=== PATIENT | female | born 1970 | race Two or more races ===

== ENCOUNTER 2021-08-20 15:12 | Inpatient (IN) | payer BC ==
[~2021-08-20] VITALS: Ht 157.5 cm; Wt 68.0 kg
[2021-08-20] VITALS (21 sets, daily range): BP systolic 116–138; BP diastolic 62–84
--- NOTE | 2021-08-20 15:20 | NUR ---
MOVE SHEET SUBMITTED AND CALLED FOR ICU BED.
--- NOTE | 2021-08-20 15:25 | NUR ---
STARTED IV LINE, BLOOD SPECIMEN COLLECTED AND SENT TO THE LAB, LINE IS SALINE LOCKED
[2021-08-20] MEDS ORDERED: PROPOFOL 100 ML ONE (15:28)
--- NOTE | 2021-08-20 15:35 | NUR ---
The patient is [id number], from Dr. Azam fong s/p abd hernia removal and developed tension pneumothorax, Chest tube placed by , 3L NS infused,intubated. Noted chest tube on the left side, RUQ NELIA drain. The drain has 45 ml of sanguineous output. The patient is attached to the monitor. Will continue to monitor the patient.
--- NOTE | 2021-08-20 15:36 | NUR ---
GOT BED 254
--- NOTE | 2021-08-20 15:37 | NUR ---
x-ray tech at the bedside
[2021-08-20 15:38] LABS: BASOPHILS # (AUTO) 0.2 K/uL (0.0-0.2); BASOPHILS % (AUTO) 1.5 % (0.0-2.0); EOSINOPHILS % (AUTO) 0.1 % (0.0-6.0); HEMATOCRIT 41 % (33-45); HEMOGLOBIN 13.1 g/dL (11.5-14.8); LYMPHOCYTES # (AUTO) 0.9 K/uL (0.8-4.8); LYMPHOCYTES % (AUTO) 6.7 % (20.0-44.0); MEAN CORPUSCULAR HGB CONC 32 g/dl (31.0-36.0); MEAN CORPUSCULAR VOLUME 93 fL (82-100); MONOCYTES # (AUTO) 0.3 K/uL (0.1-1.30); MONOCYTES % (AUTO) 2.1 % (2.0-12.0); NEUTROPHILS # (AUTO) 12.6 K/uL (1.8-8.9); NEUTROPHILS % (AUTO) 89.6 % (43.0-81.0); PLATELET COUNT (AUTO) 246 K/uL (150-450)
--- NOTE | 2021-08-20 15:41 | NUR ---
URINE COLLECTED AND SENT TO THE LAB
[2021-08-20] MEDS: PROPOFOL 100 ML IV PRN ×3 (15:44→21:20)
--- NOTE | 2021-08-20 15:50 | NUR ---
REPORT GIVEN TO NURSE NORRIS FROM ICU
--- NOTE | 2021-08-20 15:51 | NUR ---
STARTED PROPOFOL AT 5MCG/KG/MIN. WILL CONTINUE TO MONITOR THE PATIENT.
[2021-08-20] MEDS ORDERED: ACET-868 PO (15:54)
[2021-08-20] MEDS ORDERED: MULT-594 PO (15:54)
--- NOTE | 2021-08-20 15:58 | NUR ---
INCREASED PROPOFOL TO 10MCG/KG/MIN. WILL CONTINUE TO MONITOR THE PATIENT.
--- NOTE | 2021-08-20 15:58 | NUR ---
COVID SWAB DONE AND SENT TO THE LAB
[2021-08-20] MEDS ORDERED: MAGNESIUM HYDROXIDE 30 ML UDC PO PRN (16:00)
[2021-08-20] MEDS ORDERED: MORPHINE SULFATE INJ 2 MG/ML DISP.SYRIN IV PRN (16:00)
[2021-08-20] MEDS ORDERED: Z GUARD REMEDY 2 OZ OINT TP PRN (16:00)
[2021-08-20] MEDS ORDERED: MAG HYDROX/AL HYDROX/SIMETH 30 ML UDC PO PRN (16:00)
[2021-08-20] MEDS ORDERED: ONDANSETRON HCL/PF 4 MG/2 ML VIAL IVP PRN (16:00)
[2021-08-20] MEDS ORDERED: ACETAMINOPHEN 650 MG/SUPP.RECT RC PRN (16:00)
[2021-08-20 16:02] LABS: CALCIUM, SERUM 6.7 mg/dL (8.5-10.1); CARBON DIOXIDE 26 mmol/L (21-32); CHLORIDE 109 mmol/L (98-107); CREATININE 0.8 mg/dL (0.6-1.3); GLUCOSE 154 mg/dL (74-106); POTASSIUM 4.6 mmol/L (3.5-5.1); SODIUM SERUM 141 mmol/L (136-145); UREA NITROGEN, BLOOD 8 mg/dL (7-18)
[2021-08-20 16:08] LABS: ALANINE AMINOTRANSFERASE 976 U/L (12-78); ALBUMIN 3.2 g/dL (3.4-5.0); ALKALINE PHOSPHATASE 106 U/L (46-116); ASPARTATE AMINOTRANSFERASE 994 U/L (15-37); BILIRUBIN,DIRECT 0.1 mg/dL (0.0-0.2); BILIRUBIN,TOTAL 0.2 mg/dL (0.2-1.0); TOTAL PROTEIN, SERUM 6.2 g/dL (6.4-8.2)
--- NOTE | 2021-08-20 16:10 | NUR ---
ETT ADJUSTED PER MD ORDER PULLED BACK 3 CM AND SECURED AT 19 CM LIP LINE Addendum: 08/20/21 at 1838 by RADHA PARDO RT Amended: Links added.
--- NOTE | 2021-08-20 16:15 | NUR ---
INCREASED PROPOFOL TO 15MCG/KG/MIN. WILL CONTINUE TO MONITOR THE PATIENT.
[2021-08-20] MEDS ORDERED: IV NS 0.9% 250 ML IV ONE (16:16)
[2021-08-20] MEDS ORDERED: CT SWABBABLE VALVE TRANS SET 1 EA INFUS.SET MC ONE (16:16)
[2021-08-20] MEDS ORDERED: IOHEXOL-350 100 ML VIAL IV ONE (16:16)
[2021-08-20] MEDS ORDERED: NOREPINEPHRINE 8 MG in IV NS 0.9% 242 ML IV PRN (16:30)
[2021-08-20 16:34] LABS: ABG BASE EXCESS -8.3 mmol/L; ABG PCO2 41.5 mmHg (35.0-45.0); ABG PH 7.263 (7.350-7.450); ABG PO2 246.2 mmHg (75.0-100.0); AaDO2 425.3 mmHg; COHb 0.1 % (0.5-1.5); MetHb 0.5 % (0.0-1.5); O2Hb 98.4 % (94.0-97.0); PEEP,BG 0 cm H2O; SITE, ABG Right Radial; VT, ABG 450 mL
--- NOTE | 2021-08-20 16:38 | NUR ---
INCREASED PROPOFOL TO 20MCG/KG/MIN. WILL CONTINUE TO MONITOR THE PATIENT. INCREASED PROPOFOL TO 10MCG/KG/MIN. WILL CONTINUE TO MONITOR THE PATIENT.
--- NOTE | 2021-08-20 17:10 | NUR ---
RUQ NELIA drain 50 mL sanguineous. Urine output 800 mL clear, yellow color urine.
--- NOTE | 2021-08-20 17:15 | NUR ---
HARBOR MASTER NOTES PATIENT ADMITTED FROM ER , EET/VENT SETTING 7.0/19 , FIO2-60, PEEP-0, AC-14. PATIENT SEDATED WITH DIPRIVAN 30MCG/KG/HR, ALSO STARTED NS @75ML/HR ON RIGHT WRIST INTACT. PATIENT HAS ABDOMINAL HERNIAL REPAIR AT TODAY Dr HARDWICK'S OFFICE, BECAUSE PNEUMOTHORAX CHEST TUBE INSERTED DR'S OFFICE, SEALED, AND CONNECTED TO THE REGULAR SUCTIONING. RESTRAIN BILATERAL WRIST INTACT. SALDANA DRAINING LIGHT YELLOW OUTPUT, NELIA DRAINING WELL, INTACT, ON RIGHT UPPER ABDOMEN. PATIENT HAS ABDOMINAL OPENINGS, AND HAS BAND AIDS INTACT. WILL MONITORING.
--- NOTE | 2021-08-20 17:15 | NUR ---
PROPOFOL TITRATED TO EFFECT. NO ADVERSE SIDE EFFECTS NOTED.
--- NOTE | 2021-08-20 17:16 | NUR ---
THE PATIENT IS TAKEN TO CT, THEN TRANSFERED TO ROOM 254 IN STABLE CONDITION AND PER ACLS POLICY.
[2021-08-20] MEDS: IV NS 0.9% 1,000 ML IV PRN (17:30)
[2021-08-20] MEDS: PANTOPRAZOLE 40 MG VIAL IV SCH (17:32)
--- NOTE | 2021-08-20 18:20 | NUR ---
RT NOTES, PT. REC. IN ER POST-OP @ 1515 ORALLY INTUBATED AND CHEST TUBE ON LEFT SIDE. PLACED ON MECHANICAL VENTILATOR ,WITH NOTED SETTINGS, (ETT #7.0 # 22 CM ) AC, 14, 450 100 % ALARMS ARE SET AND FUNCTIONAL CONTINUE TO MONITOR. + @ 1700 VENT CHANGES DONE POST ABG @1712 PT, IN IC AND VENT CHECK DONE AND PT. STABLE REPORT WILL PASS TO PM SHIFT. Addendum: 08/20/21 at 1824 by RADHA PARDO RT Amended: Links added.
--- NOTE | 2021-08-20 18:45 | NUR ---
RN NOTES PATIENT TOLERATED SETTING WELL INCREASED DIPRIVAN 35MCG/HG/HR, ON RIGHT AC INTACT. APPLIED VJ GO. NELIA-40ML. SALDANA DRAINING VIA GRAVITY LIGHT YELLOW OUTPUT INTACT. LEFT CHEST TUBE INTACT NO OUTPUT. ENDORSED ONCOMING NURSE FOLLOW PLAN OF CARE.
--- NOTE | 2021-08-20 20:00 | NUR ---
RT NOTE PT INTUBATED WITH 7.0 ET TUBE @ 19 CM ON RIGHT MID LIP LINE. ET TUBE SECURED VIA ANCHOR FAST. VENT PLUGGED TO RED OUTLET. ALARMS ON AND AUDIBLE. MINIMAL SECRETIONS NOTED. CHEST TUBE IN PLACE. NO RESPIRATORY DISTRESS NOTED. WILL CONTINUE TO MONITOR CLOSELY. Addendum: 08/20/21 at 2000 by BHUPINDER ZUNIGA RT Amended: Links added.
[2021-08-20] MEDS: PIPERACILLIN /TAZOBACTAM 3.375 G in IV D5W 50 ML IV SCH (22:19)
[2021-08-20] MEDS: ENOXAPARIN SODIUM 40 MG/0.4 ML DISP.SYRIN SQ SCH (22:19)
[2021-08-21] VITALS (77 sets, daily range): BP systolic 92–143; BP diastolic 45–101
[2021-08-21] MEDS: PROPOFOL 100 ML IV PRN ×2 (01:28→05:03)
[2021-08-21 04:38] LABS: BASOPHILS # (AUTO) 0.1 K/uL (0.0-0.2); BASOPHILS % (AUTO) 0.5 % (0.0-2.0); HEMATOCRIT 39 % (33-45); HEMOGLOBIN 12.9 g/dL (11.5-14.8); LYMPHOCYTES # (AUTO) 1.6 K/uL (0.8-4.8); LYMPHOCYTES % (AUTO) 11.7 % (20.0-44.0); MEAN CORPUSCULAR HGB CONC 33 g/dl (31.0-36.0); MEAN CORPUSCULAR VOLUME 92 fL (82-100); MONOCYTES # (AUTO) 0.8 K/uL (0.1-1.30); MONOCYTES % (AUTO) 5.7 % (2.0-12.0); NEUTROPHILS # (AUTO) 11.3 K/uL (1.8-8.9); NEUTROPHILS % (AUTO) 82.1 % (43.0-81.0); PLATELET COUNT (AUTO) 259 K/uL (150-450); RED BLOOD CELL COUNT(AUTO) 4.23 MIL/uL (4.0-5.2); WHITE BLOOD COUNT (AUTO) 13.8 K/uL (4.3-11.0)
--- NOTE | 2021-08-21 04:49 | NUR ---
AGRONOMY INSTRUCTOR. AM CARE GIVEN. REMAINING SAME VENT SETTING TOLERATED WELL. SAT 99%. NO ACUTE DISTRESS NOTED. TOW FEEDER SHOWING NSR. IV RT AND LT HAND. IVF NS 75 ML/H, PROPOFOL 50NCG/KG/MIN, FC PATENT. NELIA TUBE INTACT. LT SIDE CHEST TUBE LOW INTERMITTENT SUCTION. AFEBRILE. TURN AND REPOSITION Q2H. WILL CONTINUE TO MONITOR VITALS
[2021-08-21] MEDS: PIPERACILLIN /TAZOBACTAM 3.375 G in IV D5W 50 ML IV SCH ×4 (04:56→21:02)
[2021-08-21 04:58] LABS: ALBUMIN 3.1 g/dL (3.4-5.0); BILIRUBIN,DIRECT 0.1 mg/dL (0.0-0.2); BILIRUBIN,TOTAL 0.4 mg/dL (0.2-1.0); CALCIUM, SERUM 7.4 mg/dL (8.5-10.1); CREATININE 0.8 mg/dL (0.6-1.3); MAGNESIUM 1.8 mg/dL (1.8-2.4); PHOSPHORUS 3.3 mg/dL (2.5-4.9); POTASSIUM 3.6 mmol/L (3.5-5.1); TOTAL PROTEIN, SERUM 6.3 g/dL (6.4-8.2)
[2021-08-21] MEDS: IV NS 0.9% 1,000 ML IV PRN ×2 (05:02→21:00)
[2021-08-21 05:10] LABS: THYROID STIMULATING HORMONE 0.517 uIU/mL (0.358-3.74)
--- NOTE | 2021-08-21 08:00 | NUR ---
rn notes received patient eet setting tolerating well fio2-30%, peep-0. patient sedated but awake mild agitated, titrated sedation per protocol. gaspar draining light woody color output, no drainage from chest tube. rechecked bilateral restrain circulation intact. assist turn and reposition, suction, mouth care done. will follow up.
--- NOTE | 2021-08-21 08:39 | NUR ---
RN NOTES get order VIA Dr Johnathon Barrera drip for weaning from vent, ABG within 15 mins. RT aware of, put patient on SIMV . order taken and carried out.
[2021-08-21 08:52] LABS: ABG BASE EXCESS -0.4 mmol/L; ABG OXYGEN SATURATION 97.5 % (92.0-98.5); ABG PCO2 34.1 mmHg (35.0-45.0); ABG PH 7.448 (7.350-7.450); ABG PO2 97.3 mmHg (75.0-100.0); AaDO2 76.5 mmHg; COHb 0.3 % (0.5-1.5); MetHb 0.4 % (0.0-1.5); O2Hb 96.8 % (94.0-97.0); PEEP,BG 0 cm H2O; SITE, ABG Right Radial; VT, ABG 500 mL
[2021-08-21] MEDS: PANTOPRAZOLE 40 MG VIAL IV SCH (09:04)
[2021-08-21 09:29] LABS: ABG BASE EXCESS -3.5 mmol/L; ABG OXYGEN SATURATION 97.1 % (92.0-98.5); ABG PCO2 30.6 mmHg (35.0-45.0); ABG PH 7.428 (7.350-7.450); ABG PO2 93.9 mmHg (75.0-100.0); COHb 0.2 % (0.5-1.5); MetHb 0.4 % (0.0-1.5); O2Hb 96.5 % (94.0-97.0); PEEP,BG 5 cm H2O; SITE, ABG Right Radial; VT, ABG 500 mL
--- NOTE | 2021-08-21 09:40 | NUR ---
rn notes patient get extubated at this time, on NC -3L, patient awake no acute respiratory distress, vs taken bp 120/73, p-77. was complaining of pain abdomen 6/10per pain scale. Get new order from Dermendjian narco 5/325 q 4hr prn. order taken and carried out.
--- NOTE | 2021-08-21 09:45 | NUR ---
RT NOTE: PATIENT RECEIVED WITH 7.0 ETT SECURED AT 19CM MID LIP LINE ON MECHANICAL VENT. AT 0840 AWAKE AND ALERT PATIENT WAS PLACED ON SIMV 4, LJ=979, PSV=15, FI02 30%, PEEP+5. ABG DONE AND REPORTED TO . AT 0935 PATIENT WAS EXTUBATED PER 'S ORDER AND PLACED ON OXYGEN 2LPM VIA NC. RESPIRATIONS ARE EVEN AND UNLABORED. SP02=99%. PATIENT IS TOLERATING WELL. NURSE AWARE.
[2021-08-21] MEDS: HYDROCODONE/APAP 5/325MG TABLET PO PRN (10:17)
--- NOTE | 2021-08-21 10:17 | NUR ---
RN NOTES ADMINISTERED NARCO 5/325 MG PO PRN FOR MID ABDOMINAL PAIN 04/18 PER PATIENT REQUEST, BP 123/80, P-89, R-14. PATIENT TALKING WITH THE FAMILY. SEEN SURGEON Dr HARDWICK. WILL FOLLOW UP.
--- NOTE | 2021-08-21 10:50 | NUR ---
RN NOTES MEDICATION WERE ADMINISTERED FOR PAIN EFFECTIVE, UA SPECIMEN COLLECTED FROM CATHETER PORT, CHEST X-RAY DONE.
[2021-08-21] MEDS: MORPHINE SULFATE INJ 2 MG/ML DISP.SYRIN IV PRN ×3 (13:38→21:02)
--- NOTE | 2021-08-21 13:38 | NUR ---
rn notes administered morphine sulfate 2 mg/ml iv push for mid abdominal pain 05/18 per patient request, bp-106/65, p- 82, r-18. family next to the bed.
--- NOTE | 2021-08-21 15:46 | NUR ---
rn notes get order from surgeon clear liquid diet.
--- NOTE | 2021-08-21 17:35 | NUR ---
RN NOTES GET ORDER FROM SURGEON Dr HARDWICK TO D/C SALDANA CATH. ORDER TAKEN AND CARRIED OUT.
--- NOTE | 2021-08-21 18:13 | NUR ---
RN NOTES ADMINISTERED MORPHINE SULFATE 2 MG/ML IV PUSH FOR MIDE ABDOMINAL PAIN 05/18 PER PATIENT REQUEST. VS-138/85, P-78, R-21. NELIA-20ML.
--- NOTE | 2021-08-21 18:45 | NUR ---
RN NOTES ASSIST PATIENT BEDSIDE COMMODE URINATED 200ML. CHEST TUBE CLAMPED, MEDICATION WERE ADMINISTERED FOR PAIN EFFECTIVE. INFUSING NS @75ML/HR ON RIGHT WRIST INTACT. NELIA INTACT. CALL LIGHT WITHIN TO REACH. ENDORSED ONCOMING NURSE JOEY.
--- NOTE | 2021-08-21 19:30 | NUR ---
RN OPENING NOTES: RECEIVED PT A/OX4 IN BED RESTING COMFORTABLY. PATIENT IN NO S/SX OF ACUTE DISTRESS AT THIS TIME. NO SOB NOTED. PATIENT'S BREATHING IS EVEN AND UNLABORED. PATIENT IS ON 3L OF OXYGEN VIA NC; TOLERATING WELL. PATIENT ON TELE MONITORING READING SINUS RHYTHM ;HR IS @74 AT THE TIME OF RECEIVED. PATIENT ON CLEAR LIQUID DIET; TOLERATES WELL. NOTED IV SITE ON L AC#18 ; PATENT, INTACT AND FLUSHING WELL; NO S/S OF INFECTION OR INFILTRATION. WITH IV FLUID RUNNING ORDERED. WITH SX WOUND DRESSINGS @ ABDOMEN ; NO SIGNS OF INFECTION AND BLEEDING. PT ALSO HAS R ABD NELIA DRAIN; SECURED AND INTACT NO OUTPUT NOTED AT THE TIME OF RECEIVED. WITH R UPPER CHEST TUBE CURRENTLY CLAMPED PER MD ORDER. SAFETY MEASURES HAVE BEEN PROVIDED AND IMPLEMENTED. PATIENT BED ALARM IS ON. HEAD OF BED ELEVATED. BED IS LOCKED, IN LOWEST POSITION AND SIDE RAILS UP. CALL LIGHT WITHIN REACH OF THE PATIENT. APPLICABLE ISOLATION PRECAUTIONS IN PLACE. WILL CONTINUE TO MONITOR AND REASSESS FOR ANY CHANGES AND WILL CARRY OUT ANY ONGOING AND ACTIVE MD ORDER.
[2021-08-21] MEDS: ENOXAPARIN SODIUM 40 MG/0.4 ML DISP.SYRIN SQ SCH (21:03)
[2021-08-22] VITALS (31 sets, daily range): BP systolic 99–140; BP diastolic 60–118
--- NOTE | 2021-08-22 | NUR ---
RN NOTES PATIENT REMAINED TO BE IN NO SIGNS OF ACUTE RESPIRATORY DISTRESS , VITAL SIGNS WNL AT THIS TIME. WILL CONTINUE TO MONITOR AND REASSESS FOR ANY CHANGES THROUGHOUT THE SHIFT.
[2021-08-22] MEDS: PIPERACILLIN /TAZOBACTAM 3.375 G in IV D5W 50 ML IV SCH ×4 (02:21→21:27)
--- NOTE | 2021-08-22 04:00 | NUR ---
RN NOTES NO NOTED CHANGES IN PATIENT CONDITION AT THIS TIME; PATIENT VITALS STABLE, NO SIGNS OF ACUTE RESPIRATORY DISTRESS. AM PATIENT CARE RENDERED WITH CHEST TUBE DRESSING CHANGE. WILL CONTINUE TO MONITOR AND REASSESS FOR ANY CHANGES THROUGHOUT THE SHIFT.
[2021-08-22 04:39] LABS: ALBUMIN 2.9 g/dL (3.4-5.0); BILIRUBIN,DIRECT 0.2 mg/dL (0.0-0.2); BILIRUBIN,TOTAL 0.8 mg/dL (0.2-1.0); TOTAL PROTEIN, SERUM 6.3 g/dL (6.4-8.2)
[2021-08-22] MEDS: MORPHINE SULFATE INJ 2 MG/ML DISP.SYRIN IV PRN ×3 (06:30→20:32)
--- NOTE | 2021-08-22 06:53 | NUR ---
RN CLOSING NOTE: PATIENT REMAINS IN ROOM IN NO SIGNS OF RESPIRATORY DISTRESS, PATIENT NOW ON 2L OF 02 VIA NC ;TOLERATING WELL SATURATING @ >95% SP02. NELIA DRAIN STILL INTACT WITH TOTAL OUTPUT OF 25CC. R CHEST TUBE IS STILL INTACT AND CLAMPED PER MD ORDER; DRESSING CHANGE DONE DURING SHIFT. SAFETY MEASURES IMPLEMENTED, BED IN LOWEST POSITION, LOCKED, SIDE RAILS UP, CALL LIGHT WITHIN REACH. ALL NEEDS AND ORDERS ADDRESSED DURING THE SHIFT. IV ACCESS MAINTAINED INTACT, SECURED AND FLUSHING WELL. ALL DUE MEDS GIVEN ORDERED & SCHEDULED ; PATIENT TOLERATED WELL. PATIENT KEPT CLEAN AND COMFORTABLE WITHIN THE SHIFT. PATIENT ENDORSED TO INCOMING SHIFT RN WITH STABLE VITAL SIGN AND FOR CONTINUITY OF CARE.
[2021-08-22 07:32] LABS: BASOPHILS % (AUTO) 0.6 % (0.0-2.0); EOSINOPHILS % (AUTO) 5.5 % (0.0-6.0); HEMATOCRIT 37 % (33-45); HEMOGLOBIN 12.4 g/dL (11.5-14.8); LYMPHOCYTES # (AUTO) 1.8 K/uL (0.8-4.8); LYMPHOCYTES % (AUTO) 22.6 % (20.0-44.0); MEAN CORPUSCULAR HGB CONC 33 g/dl (31.0-36.0); MEAN CORPUSCULAR VOLUME 91 fL (82-100); MONOCYTES # (AUTO) 0.5 K/uL (0.1-1.30); MONOCYTES % (AUTO) 6.3 % (2.0-12.0); PLATELET COUNT (AUTO) 235 K/uL (150-450); RED BLOOD CELL COUNT(AUTO) 4.07 MIL/uL (4.0-5.2); WHITE BLOOD COUNT (AUTO) 7.7 K/uL (4.3-11.0)
[2021-08-22 07:37] LABS: CALCIUM, SERUM 7.9 mg/dL (8.5-10.1); CREATININE 0.7 mg/dL (0.6-1.3); POTASSIUM 3.3 mmol/L (3.5-5.1)
--- NOTE | 2021-08-22 08:00 | NUR ---
RN NOTES DIAGNOSTIC: There are small bilateral pleural effusions. There are perihilar and lower lung airspace opacities. There is no pneumothorax. The cardiomediastinal silhouette is enlarged. The osseous structures are intact. No interval change. Redemonstration of bilateral para and lower lung airspace opacities, suggesting pulmonary edema or pneumonia. Small bilateral pleural effusions. Stable cardiomegaly. PATIENT A/O X4, NO ACUTE RESPIRATORY DISTRESS, CHEST TUBE IS CLAMPED, ASSIST REPOSITIONING, PATIENT TOLERATING BREAKFAST WELL. SEEN BOARD OPERATOR, AND STATE ASSESSED PROPERTIES DIRECTOR. WILL FOLLOW UP.
[2021-08-22] MEDS: PANTOPRAZOLE 40 MG VIAL IV SCH (08:29)
[2021-08-22] MEDS: HYDROCODONE/APAP 5/325MG TABLET PO PRN (08:31)
--- NOTE | 2021-08-22 08:31 | NUR ---
RN NOTES ADMINISTERED NARCO 5/325 MG PO PRN FOR LEFT UPPER ARM PAIN 04/18 PER PATIENT REQUEST. BP- 128/76, P- 62, R-15, DUE MEDICATION ALSO ADMINISTERED .WILL FOLLOW UP.
[2021-08-22] MEDS ORDERED: POTASSIUM CHLORIDE 20 MEQ POWDER PACKET PO SCH (09:30)
--- NOTE | 2021-08-22 10:10 | NUR ---
RN NOTES REMOVED CHEST TUBE VIA Dr OLEA, APPLIED ADHESIVE DRESSING, PATIENT HAS NO ACUTE RESPIRATORY DISTRESS. WILL MONITORING. CALL LIGHT WITHIN TO REACH.
--- NOTE | 2021-08-22 14:30 | NUR ---
RN NOTE PATIENT TRANSFERRED TO THE TELE UNIT ROOM 306 BED 1 STABLE, VSS, ON O2-3L NO ACUTE RESPIRATORY DISTRESS. MEDICATION WERE ADMINISTERED FOR PAIN EFFECTIVE. ASSIST PATIENT TO THE BED SIDE COMMODE . NELIA INTACT OUTPUT WAS 18ML. BEDSIDE REPORT GIVEN BRANCH MECHANIC FOLLOW PLAN OF CARE.
--- NOTE | 2021-08-22 14:30 | NUR ---
MANAGER PHYSICAL OPENING NOTE PT TRANSPORTED TO TELE UNIT AT THIS TIME. RECEIVED PT AWAKE IN BED. A/O X4. PT IS ON 3LPM O2 VIA NC SATS 99%. NO SOB OR S/S OF RESPIRATORY DISTRESS NOTED. PT ON EXTERNAL HANDBAG FRAMER READING SR AT 69BPM. PT HAS NO C/O PAIN OR DISCOMFORT AT THIS TIME. IV ACCESS IN LAC #18 INFUSING NS @ 75ML/HR, INTACT AND PATENT. PT NOTED WITH NELIA INTACT WITH NO OUTPUT AT THIS TIME. ORIENTED PT TO STAFF, ROOM, AND UNIT. SAFETY PRECAUTIONS MAINTAINED. BED IN LOWEST LOCKED POSITION, HOB ELEVATED, SIDE RAILS UP X2. CALL LIGHT AND TABLE WITHIN REACH. WILL CONTINUE TO MONITOR.
[2021-08-22] MEDS: IV NS 0.9% 1,000 ML IV PRN (15:17)
--- NOTE | 2021-08-22 15:19 | NUR ---
RN NOTE - PAIN PT C/O ACHING AND BURNING PAIN IN MEDIAL ABDOMINAL AREA, RATED 8/10 ON PAIN SCALE. VSS. ADMINISTERED MORPHINE 2MG IV Q4H PRN ORDERED. WILL CONTINUE TO MONITOR PT.
--- NOTE | 2021-08-22 18:29 | NUR ---
HOME CARE NURSE CLOSING NOTE PT IS AWAKE IN BED. A/O X4. PT IS ON 3LPM O2 VIA NC SATS 99%. NO SOB OR S/S OF RESPIRATORY DISTRESS NOTED. PT ON EXTERNAL CIGAR WRAPPER READING SR AT 91BPM. PT HAS NO C/O PAIN OR DISCOMFORT AT THIS TIME. IV ACCESS IN LAC #18 INFUSING NS @ 75ML/HR. PT NOTED WITH NELIA INTACT WITH NO OUTPUT AT THIS TIME. ALL NEEDS HAVE BEEN MET. PAIN MANAGEMENT ADMINISTERED PER ORDER. SAFETY PRECAUTIONS MAINTAINED AT ALL TIMES. BED IN LOWEST LOCKED POSITION, HOB ELEVATED, SIDE RAILS UP X2. CALL LIGHT AND TABLE WITHIN REACH. WILL ENDORSE TO ONCOMING NURSE FOR JOEY.
--- NOTE | 2021-08-22 19:10 | NUR ---
GOPHERMAN OPENING NOTES: RECEIVED PATIENT IN BED, AWAKE, A/O X4. NO S/S OF DISTRESS NOTED. NO COMPLAIN OF PAIN. CALL LIGHT WITHIN REACH. BED IN LOWEST AND LOCKED POSITION. HOB ELEVATED. WITH O2 AT 5L/MIN NASAL CANNULA. WITH NELIA INTACT, WITH BROWNISH COLOR OUTPUT. WITH LAP SITES X4 WITH BAND-AIDS, CLEAN,DRY AND INTACT.
[2021-08-22] MEDS: ENOXAPARIN SODIUM 40 MG/0.4 ML DISP.SYRIN SQ SCH (21:29)
[2021-08-23] VITALS: BP 117/74
[2021-08-23] MEDS: PIPERACILLIN /TAZOBACTAM 3.375 G in IV D5W 50 ML IV SCH ×2 (03:25→08:04)
[2021-08-23 04:00] VITALS: BP 127/78
[2021-08-23 06:15] LABS: BASOPHILS % (AUTO) 0.6 % (0.0-2.0); EOSINOPHILS % (AUTO) 8.2 % (0.0-6.0); HEMATOCRIT 38 % (33-45); HEMOGLOBIN 13.1 g/dL (11.5-14.8); LYMPHOCYTES # (AUTO) 2.3 K/uL (0.8-4.8); LYMPHOCYTES % (AUTO) 32.7 % (20.0-44.0); MEAN CORPUSCULAR HGB CONC 34 g/dl (31.0-36.0); MEAN CORPUSCULAR VOLUME 90 fL (82-100); MONOCYTES # (AUTO) 0.4 K/uL (0.1-1.30); MONOCYTES % (AUTO) 6.2 % (2.0-12.0); NEUTROPHILS # (AUTO) 3.7 K/uL (1.8-8.9); NEUTROPHILS % (AUTO) 52.3 % (43.0-81.0); PLATELET COUNT (AUTO) 234 K/uL (150-450); RED BLOOD CELL COUNT(AUTO) 4.23 MIL/uL (4.0-5.2); WHITE BLOOD COUNT (AUTO) 7.1 K/uL (4.3-11.0)
[2021-08-23 07:19] LABS: CALCIUM, SERUM 8.3 mg/dL (8.5-10.1); CREATININE 0.7 mg/dL (0.6-1.3); POTASSIUM 3.3 mmol/L (3.5-5.1)
--- NOTE | 2021-08-23 07:35 | NUR ---
STRAW HAT WASHER OPERATOR OPENING NOTES RECEIVED PATIENT IN BED, AWAKE, A/O X4, ON 3LPM O2 VIA NC SATS 99%. NO SOB OR S/S OF RESPIRATORY DISTRESS NOTED. PT ON EXTERNAL VOLTAGE INSPECTOR READING SR AT 80'S. PT HAS NO C/O PAIN OR DISCOMFORT AT THIS TIME. IV ACCESS IN LEFT HAND #24 INFUSING NS @ 75ML/HR. PT NOTED WITH NELIA DRAIN INTACT DRAINING SEROSANGUINEOUS OUTPUT. SAFETY PRECAUTIONS IN PLACE. BED IN LOWEST LOCKED POSITION, HOB ELEVATED, SIDE RAILS UP X2. CALL LIGHT AND TABLE WITHIN REACH. WILL CONTINUE TO MONITOR ACCORDINGLY.
[2021-08-23 08:00] VITALS: BP 123/69
[2021-08-23] MEDS: POTASSIUM CHLORIDE 20 MEQ TAB.PRT.SR PO SCH ×3 (08:30→09:59)
[2021-08-23] MEDS ORDERED: PANTOPRAZOLE 40 MG TABLET.DR PO SCH (09:00)
[2021-08-23] MEDS ORDERED: TRAM50TA PO (10:05)
[2021-08-23] MEDS ORDERED: PANT40TA2 PO (10:05)
--- NOTE | 2021-08-23 13:31 | NUR ---
SOLAR SALES NOTES DISCHARGE PATIENT IN STABLE CONDITION. VITAL SIGNS WITHIN NORMAL LIMITS. HOME MEDICATIONS INSTRUCTIONS AND FOLLOW UP INSTRUCTED. INSTRUCTIONS GIVEN TO PATIENT. PATIENT WILL BE DISCHARGED WITH NELIA DRAIN PER DR. HARDWICK. INSTRUCTED ON HOW TO DRAIN NELIA DRAIN. INSTRUCTED ON FOLLOW UP. PATIENT VERBALIZED UNDERSTANDING OF INSTRUCTIONS GIVEN. IV ACCESS REMOVED, COVERED WITH GAUZE, NO BLEEDING NOTED. ARMBAND REMOVED. WHEELED PATIENT TO LOBBY ACCOMPANIED BY ROSALINO (SECURITY PROGRAM MANAGER) WITH DAUGHTER. MD AND CHARGE NURSE AWARE OF DISCHARGE.
== END 2021-08-23 13:30 | disposition home or self-care (01) | DRG 208 ==
LOC: ER 15:15 → ICU 16:04 → MED 08-22 15:06 → TELE 08-22 15:20 → MED 08-23 08:05
PROVIDERS: ADMIT Nurse Practitioner Acute Care; ATTEND Nurse Practitioner Acute Care
PROC: 5A1935Z Respiratory Ventilation, Less than 24 Consecutive Hours (ICD-10-PCS; principal; 2021-08-20)
DX: J96.01 Acute respiratory failure with hypoxia (principal); K72.00 Acute and subacute hepatic failure without coma; J93.9 Pneumothorax, unspecified; J98.11 Atelectasis; Z20.822 Contact with and (suspected) exposure to COVID-19; R74.01 Elevation of levels of liver transaminase levels; E87.6 Hypokalemia; K59.00 Constipation, unspecified; Z98.890 Other specified postprocedural states; E66.9 Obesity, unspecified; I51.7 Cardiomegaly; Z68.28 Body mass index [BMI] 28.0-28.9, adult
CPT/HCPCS: 31720; 36415; 36600; 71045-TC; 74022-TC; 76700-TC; 80048-TC; 80061-TC; 80076-TC; 82803-TC; 83605-TC; 83735-TC; 84100-TC; 84443-TC; 84484-TC; 84703-TC; 85025-TC; 85730-TC; 87081-TC; 93307-TC; 94002-TC; 94003-TC; 94799-TC; 97116-TC; 97530-TC; 97535-TC; 99082-TC; A6253; A6403; C9113; G0378; J1650; J2270; J2543; J3490; J7030; J7050; J7060; Q9967